=== PATIENT | male | born 1945 | race Caucasian/White ===

== ENCOUNTER 2016-10-29 13:50 | Inpatient (IN) | payer MEDICARE ==
[~2016-10-29] VITALS: Ht 185.4 cm; Wt 61.2 kg
[~2016-10-29 13:50] MED LIST: ASPIR 8181 MG PO; CATAPRES 0.1MG0.1 MG PO; CEFTIN500 MG PO; ENSURE LIQUID237 ML PO; ENSURE ORIGINA237 ML PO; IPRAT-ALBUT 0.5-3 ML INH; KLONOPIN TAB 00.5 MG PO; KLONOPIN0.5 MG PO; LASIX TAB 20 MG20 MG PO; LOPRESSOR 25 MG25 MG PO; MEDROL DOSEPAK 24 MG PO; NORCO 10-325 T1 EACH PO; NORVASC 5 MG TAB5 MG PO; PRECOSE 50 MG T50 MG PO; PREDNISONE10 MG PO; SINGULAIR10 MG PO; SPIRIVA18 MCG INH; THEO-DUR 200 M200 MG PO; THEOPHYLLINE400 MG PO; VENTOLIN HFA 66.7 GM INH
[2016-10-29 15:23] LABS: HEMOGLOBIN 13.9 gm/dl (14.0-17.5); RED BLOOD COUNT 4.5 M/UL (4.20-5.50); WHITE BLOOD COUNT 14.2 K/UL (4.5-11.0)
[2016-10-29 15:47] LABS: BUN/CREATININE RATIO 16 (0-10)
[2016-10-30 09:22] LABS: BUN/CREATININE RATIO 18 (0-10)
[2016-10-30] MEDS ORDERED: THEOPHYLLINE400 MG PO (11:12)
[2016-10-30] MEDS ORDERED: ASPIR-LOW81 MG PO (11:15)
[2016-10-31 07:06] LABS: HEMOGLOBIN 14.2 gm/dl (14.0-17.5); RED BLOOD COUNT 4.73 M/UL (4.20-5.50); WHITE BLOOD COUNT 11.8 K/UL (4.5-11.0)
[2016-11-02 06:23] LABS: HEMOGLOBIN 12.9 gm/dl (14.0-17.5); WHITE BLOOD COUNT 10.3 K/UL (4.5-11.0)
[2016-11-02 06:24] LABS: RED BLOOD COUNT 4.24 M/UL (4.20-5.50)
[2016-11-02 06:34] LABS: BUN/CREATININE RATIO 38 (0-10)
[2016-11-03 05:12] LABS: HEMOGLOBIN 13.3 gm/dl (14.0-17.5); RED BLOOD COUNT 4.38 M/UL (4.20-5.50); WHITE BLOOD COUNT 12.5 K/UL (4.5-11.0)
[2016-11-03 05:31] LABS: BUN/CREATININE RATIO 48 (0-10); THEOPHYLLINE 8.1 ug/mL (10.0-20.0)
[2016-11-04 04:51] LABS: HEMOGLOBIN 13.3 gm/dl (14.0-17.5); RED BLOOD COUNT 4.38 M/UL (4.20-5.50); WHITE BLOOD COUNT 9.8 K/UL (4.5-11.0)
[2016-11-04 05:08] LABS: BUN/CREATININE RATIO 36 (0-10)
[2016-11-04] MEDS ORDERED: CARDIZEM60 MG PO (16:20)
[2016-11-04] MEDS ORDERED: CEFUROXIME500 MG PO (16:21)
[2016-11-04] MEDS ORDERED: PREDNISONE 10 M10 MG PO (16:23)
== END 2016-11-04 16:40 | disposition home or self-care (01) | DRG 189 ==
LOC: ER1 13:50 → MED SURG 4 19:52 → ZEROF 19:52 → MED SURG 4 10-30 16:07
PROVIDERS: Emergency Medicine; Internal Medicine; ADMIT Family Medicine
PROC: 5A09457 Assistance with Respiratory Ventilation, 24-96 Consecutive Hours, Continuous Positive Airway Pressure (ICD-10-PCS; principal; 2016-10-31)
DX: J96.22 Acute and chronic respiratory failure with hypercapnia (principal); G93.40 Encephalopathy, unspecified; J44.1 Chronic obstructive pulmonary disease with (acute) exacerbation; E87.4 Mixed disorder of acid-base balance; Z68.1 Body mass index [BMI] 19.9 or less, adult; J96.21 Acute and chronic respiratory failure with hypoxia; I27.2 Other secondary pulmonary hypertension; R00.0 Tachycardia, unspecified; I10 Essential (primary) hypertension; E78.5 Hyperlipidemia, unspecified; I07.1 Rheumatic tricuspid insufficiency; R63.0 Anorexia; G89.4 Chronic pain syndrome; M54.5 Low back pain; F41.1 Generalized anxiety disorder; F41.0 Panic disorder [episodic paroxysmal anxiety]; F17.210 Nicotine dependence, cigarettes, uncomplicated; Z91.19 Patient's noncompliance with other medical treatment and regimen; Z66 Do not resuscitate; Z99.81 Dependence on supplemental oxygen; Z79.891 Long term (current) use of opiate analgesic; Z79.82 Long term (current) use of aspirin; Z79.899 Other long term (current) drug therapy; Z98.890 Other specified postprocedural states; Z82.49 Family history of ischemic heart disease and other diseases of the circulatory system; Z83.3 Family history of diabetes mellitus
CPT/HCPCS: 36415; 36600; 71010; 71020; 80048; 80053; 80198; 82550; 82553; 82803; 83605; 83690; 83735; 83874; 83880; 84439; 84443; 84484; 85025; 85027; 85379; 87040; 87070; 87205; 93005; 94640; 94660; 94664; 96361; 96374; 96375; 99285; J0456; J0696; J1650; J2060; J2270; J2920; J2930; J7030; J7050